=== PATIENT | male | born 1980 | race Caucasian/White ===

== ENCOUNTER 2017-09-15 03:43 | Emergency (ER) | payer OTHER ==
[2017-09-15 04:10] VITALS: BP 131/86
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
== END 2017-09-15 08:52 | disposition home or self-care (01) ==
LOC: ER 03:43
DX: S16.1XXA Strain of muscle, fascia and tendon at neck level, initial encounter (principal); M25.561 Pain in right knee; F17.200 Nicotine dependence, unspecified, uncomplicated; V89.2XXA Person injured in unspecified motor-vehicle accident, traffic, initial encounter
CPT/HCPCS: 99283